=== PATIENT | female | born 1945 | race Caucasian/White ===

== ENCOUNTER 2021-03-27 09:15 | Day surgery (SDC) | payer OTHER, MEDICARE ==
[2021-03-25 12:14] VITALS: BMI 25.2
[2021-03-27] MEDS: TROPICAMIDE 1% OPHTH SOLN 15 ML BOTTLE ONE ×3 (10:10→10:20)
[2021-03-27] MEDS: PHENYLEPHRINE 2.5% OPHTH SOLN 15 ML BOTTLE ONE ×3 (10:10→10:20)
[2021-03-27] MEDS: CYCLOPENTOLATE 2% OPHTH SOLN 2 ML BOTTLE ONE ×3 (10:10→10:20)
[2021-03-27] MEDS: TOBRAMYCIN 0.3% OPHTH SOLN 5 ML BOTTLE ONE ×3 (10:10→10:20)
[2021-03-27] MEDS ORDERED: MIDAZOLAM HCL 2 MG/2 ML SINGLE DOSE VIAL ONE (10:21)
[2021-03-27] MEDS ORDERED: CARBACHOL 0.01% INTRA-OCULAR 1.5 ML VIAL ONE (10:39)
[2021-03-27] MEDS ORDERED: LIDOCAINE 1% P/F 10 MG/ML VIAL ONE (10:39)
[2021-03-27] MEDS ORDERED: NEO/POLYMYX B SULF/DEXAMETH OPHTHALMIC 5ML BOTTLE ONE (10:39)
[2021-03-27] MEDS ORDERED: TETRACAINE 0.5% OPHTH SOLN 2 ML BOTTLE ONE (10:39)
[2021-03-27] MEDS ORDERED: BSS (NA/CA/MG/K) BALANCED SALT SOLUTION OPHTH SOLN 15 ML BOTTLE ONE (10:39)
[2021-03-27 10:44] VITALS: O2SAT 100
[2021-03-27 14:35] VITALS: BP 128/71; PULSE 74; TEMP 97.8
== END 2021-03-27 12:45 | disposition home or self-care (01) ==
LOC: FASU 09:15
PROVIDERS: ATTEND Ophthalmology
PROC: 08RK3JZ Replacement of Left Lens with Synthetic Substitute, Percutaneous Approach (ICD-10-PCS; principal; 2021-03-27 10:59)
DX: H26.8 Other specified cataract (principal)

== ENCOUNTER 2021-06-03 08:14 | Day surgery (SDC) | payer OTHER, MEDICARE ==
[2021-05-28 15:16] VITALS: BMI 25.2
[2021-06-03] MEDS: TOBRAMYCIN 0.3% OPHTH SOLN 5 ML BOTTLE ONE ×3 (08:50→09:00)
[2021-06-03] MEDS: PHENYLEPHRINE 2.5% OPHTH SOLN 15 ML BOTTLE ONE ×3 (08:50→09:00)
[2021-06-03] MEDS: TROPICAMIDE 1% OPHTH SOLN 15 ML BOTTLE ONE ×3 (08:50→09:00)
[2021-06-03] MEDS: CYCLOPENTOLATE 2% OPHTH SOLN 2 ML BOTTLE ONE ×3 (08:50→09:00)
[2021-06-03] MEDS ORDERED: LIDOCAINE 1% P/F 10 MG/ML VIAL ONE (10:00)
[2021-06-03] MEDS ORDERED: NEO/POLYMYX B SULF/DEXAMETH OPHTHALMIC 5ML BOTTLE ONE (10:01)
[2021-06-03] MEDS ORDERED: TETRACAINE 0.5% OPHTH SOLN 2 ML BOTTLE ONE (10:01)
[2021-06-03] MEDS ORDERED: BSS (NA/CA/MG/K) BALANCED SALT SOLUTION OPHTH SOLN 15 ML BOTTLE ONE (10:01)
[2021-06-03] MEDS ORDERED: CARBACHOL 0.01% INTRA-OCULAR 1.5 ML VIAL ONE (10:01)
[2021-06-03] MEDS ORDERED: MIDAZOLAM HCL 2 MG/2 ML SINGLE DOSE VIAL ONE ×2 (10:24→10:25)
[2021-06-03 11:39] VITALS: TEMP 98.1
[2021-06-03 11:40] VITALS: BP 127/45; PULSE 72
== END 2021-06-03 11:30 | disposition home or self-care (01) ==
LOC: FASU 08:14
PROVIDERS: ATTEND Ophthalmology
PROC: 08RJ3JZ Replacement of Right Lens with Synthetic Substitute, Percutaneous Approach (ICD-10-PCS; principal; 2021-06-03 10:30)
DX: H26.8 Other specified cataract (principal)